=== PATIENT | female | born 1965 | race Caucasian/White ===

== ENCOUNTER 2021-02-20 10:31 | Observation (INO) | payer OTHER ==
[~2021-02-20] VITALS: Ht 162.6 cm; Wt 81.6 kg
[2021-02-20 11:36] LABS: HEMOGLOBIN 15.4 gm/dl (12.3-15.3); RED BLOOD COUNT 4.54 M/UL (4.00-5.10); WHITE BLOOD COUNT 15.9 K/UL (4.5-11.0)
[2021-02-20 11:54] LABS: BUN/CREATININE RATIO 11 (0-10)
[2021-02-20] MEDS ORDERED: ASPIRIN81 MG PO (18:49)
[2021-02-20] MEDS ORDERED: PROAIR HFA8.5 GM INH (18:49)
[2021-02-20] MEDS ORDERED: WELLBUTRIN SR100 MG PO (18:50)
[2021-02-20] MEDS ORDERED: CLOPIDOGREL75 MG PO (18:51)
[2021-02-20] MEDS ORDERED: BUSPIRONE HCL10 MG PO (18:51)
[2021-02-20] MEDS ORDERED: DULOXETINE HCL60 MG PO (18:52)
[2021-02-20] MEDS ORDERED: DOCUSATE SODIU100 MG PO (18:52)
[2021-02-20] MEDS ORDERED: IBU600 MG PO (18:52)
[2021-02-20] MEDS ORDERED: CLARITIN 10MG T10 MG PO (18:53)
[2021-02-20] MEDS ORDERED: ZESTRIL30 MG PO (18:53)
[2021-02-20] MEDS ORDERED: ISOSORBIDE MON120 MG PO (18:53)
[2021-02-20] MEDS ORDERED: METOPROLOL TART25 MG PO (18:54)
[2021-02-20] MEDS ORDERED: NITROGLYCERIN0.4 MG SL (18:54)
[2021-02-20] MEDS ORDERED: PROTONIX 40 MG40 M1 PO (18:55)
[2021-02-20] MEDS ORDERED: PHENERGAN 25 MG25 M1 PO (18:55)
[2021-02-20] MEDS ORDERED: SIMVASTATIN80 MG PO (18:56)
[2021-02-20] MEDS ORDERED: GABAPENTIN800 MG PO (18:56)
[2021-02-20] MEDS ORDERED: TIZANIDINE HCL4 MG PO (18:56)
[2021-02-20] MEDS ORDERED: HYDROCODON-ACE1 EAC2 PO (18:57)
[2021-02-20] MEDS ORDERED: CIMETIDINE200 MG PO (18:58)
[2021-02-21 05:22] LABS: WHITE BLOOD COUNT 12.1 K/UL (4.5-11.0)
[2021-02-21 05:27] LABS: HEMOGLOBIN 12.6 gm/dl (12.3-15.3); RED BLOOD COUNT 3.83 M/UL (4.00-5.10)
[2021-02-21 07:43] LABS: BUN/CREATININE RATIO 9 (0-10)
[2021-02-21] MEDS ORDERED: OMNICEF 300 MG300 MG PO (09:39)
[2021-02-21] MEDS ORDERED: ZITHROMAX1 GM PO (09:39)
== END 2021-02-21 12:48 | disposition home or self-care (01) ==
LOC: ER1 10:31 → M/S 15:27 → CDU 15:27 → M/S 02-21 02:50
PROVIDERS: Emergency Medicine; Physician Assistant Medical; ADMIT Internal Medicine
DX: J44.0 Chronic obstructive pulmonary disease with (acute) lower respiratory infection (principal); J18.9 Pneumonia, unspecified organism; J96.01 Acute respiratory failure with hypoxia; I25.10 Atherosclerotic heart disease of native coronary artery without angina pectoris; I10 Essential (primary) hypertension; E78.5 Hyperlipidemia, unspecified; F17.210 Nicotine dependence, cigarettes, uncomplicated; Z95.5 Presence of coronary angioplasty implant and graft; Z79.82 Long term (current) use of aspirin; Z20.822 Contact with and (suspected) exposure to COVID-19; G31.9 Degenerative disease of nervous system, unspecified; J90 Pleural effusion, not elsewhere classified; R94.31 Abnormal electrocardiogram [ECG] [EKG]
CPT/HCPCS: 0240U; 36415; 70450; 71045; 71250; 80048; 80053; 81001; 83605; 83735; 84100; 85025; 85027; 87040; 87086; 93005; 94760; 96374; 96375; 99285; G0378; J0456; J0696; J3370; J7030; J7050

== ENCOUNTER 2021-07-09 07:32 | Emergency (ER) | payer OTHER ==
[~2021-07-09 07:32] MED LIST: ASPIRIN81 MG PO; BUSPIRONE HCL10 MG PO; CIMETIDINE200 MG PO; CLARITIN 10MG T10 MG PO; CLOPIDOGREL75 MG PO; DOCUSATE SODIU100 MG PO; DULOXETINE HCL60 MG PO; GABAPENTIN800 MG PO; HYDROCODON-ACE1 EAC2 PO; IBU600 MG PO; ISOSORBIDE MON120 MG PO; METOPROLOL TART25 MG PO; NITROGLYCERIN0.4 MG SL; OMNICEF 300 MG300 MG PO; PHENERGAN 25 MG25 M1 PO; PROAIR HFA8.5 GM INH; PROTONIX 40 MG40 M1 PO; SIMVASTATIN80 MG PO; TIZANIDINE HCL4 MG PO; WELLBUTRIN SR100 MG PO; ZESTRIL30 MG PO; ZITHROMAX1 GM PO
[2021-07-09] MEDS ORDERED: IBUPROFEN600 MG PO (09:56)
== END 2021-07-09 11:05 | disposition home or self-care (01) ==
LOC: ER1 07:32
DX: R51.9 Headache, unspecified (principal); M54.2 Cervicalgia; M79.652 Pain in left thigh; I11.9 Hypertensive heart disease without heart failure; F17.200 Nicotine dependence, unspecified, uncomplicated; Z88.0 Allergy status to penicillin; Z95.5 Presence of coronary angioplasty implant and graft
CPT/HCPCS: 70450; 72125; 73502; 96374; 96375; 99284; J2270; J2405